=== PATIENT | male | born 2000 | race Caucasian/White ===

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

== ENCOUNTER → 2022-05-07 | Outpatient (CLI) | payer OTHER ==
[2022-05-07 10:38] LABS: CHOLESTEROL RISK RATIO 5.16 (<5); LDL CHOLESTEROL 112.4 MG/DL (<100)
[2022-05-07 10:41] LABS: THYROID STIMULATING HORMONE 2.4 uIU/ML (0.48-4.17)
[2022-05-07 10:42] LABS: FREE T4 1.11 NG/DL (0.83-1.43)
== END ==
LOC: M WUC 08:32
PROVIDERS: ATTEND Pediatrics Pediatric Endocrinology
DX: E10.65 Type 1 diabetes mellitus with hyperglycemia (principal)

== ENCOUNTER → 2023-02-08 | Outpatient (REF) | payer OTHER ==
[2023-02-08 18:30] LABS: CREATININE, URINE 244.4 MG/DL; MAU/CREAT RATIO 1.6 MCG/MG (0.0-30.0)
== END ==
LOC: M LAB REF 16:31
PROVIDERS: ATTEND Pediatrics Pediatric Endocrinology
DX: Z79.4 Long term (current) use of insulin (principal)